=== PATIENT | male | born 1955 | race Hispanic/Latino ===

== ENCOUNTER 2016-12-04 21:53 | Emergency (ER) | payer SELFPAY ==
[2016-12-04] MEDS ORDERED: methylPREDNISolone Sod Succ/PF 125 MG/2 ML VIAL ONE (22:19)
[2016-12-04] MEDS ORDERED: Famotidine 20 MG TAB ONE (22:19)
== END 2016-12-04 23:05 | disposition home or self-care (01) ==
LOC: NAV ERS 21:53
DX: L50.0 Allergic urticaria (principal); E78.5 Hyperlipidemia, unspecified; E78.00 Pure hypercholesterolemia, unspecified; Z79.899 Other long term (current) drug therapy
CPT/HCPCS: 96372; J2930

== ENCOUNTER 2016-12-05 00:47 | Emergency (ER) | payer SELFPAY ==
[2016-12-05] MEDS ORDERED: diphenhydrAMINE HCl 50 MG/ML 1 ML VIAL ONE (01:00)
[2016-12-05] MEDS ORDERED: Sodium Chloride 0.9% 1,000 ML ONE (01:00)
[2016-12-05] MEDS ORDERED: EPINEPHrine 1 MG/ML AMP ONE (01:00)
== END 2016-12-05 05:18 | disposition home or self-care (01) ==
LOC: NAV ERS 00:47
DX: T78.3XXA Angioneurotic edema, initial encounter (principal); E78.5 Hyperlipidemia, unspecified; Z79.52 Long term (current) use of systemic steroids; Z79.899 Other long term (current) drug therapy
CPT/HCPCS: 96361; 96372; 96374; J0171; J1200; J7050